=== PATIENT | female | born 1955 | race Caucasian/White ===

== ENCOUNTER 2018-07-28 13:33 | Day surgery (SDC) | payer OTHER ==
[2018-07-28] MEDS ORDERED: LIDOCAINE 2% (SDV) 5 ML INJ (15:37)
[2018-07-28] MEDS ORDERED: PROPOFOL 40 ML (15:37)
== END 2018-07-28 16:59 | disposition home or self-care (01) ==
LOC: GIL 13:33
DX: K92.1 Melena (principal); D12.5 Benign neoplasm of sigmoid colon
CPT/HCPCS: 45385; 88305

== ENCOUNTER 2018-10-19 19:10 | Inpatient (IN) | payer OTHER ==
[2018-10-19] MEDS: DEXTROSE 5%-0.45% NACL 1,000 ML IV (20:41)
[2018-10-19] MEDS: GABAPENTIN 300 MG CAP PO (21:49)
[2018-10-19] MEDS: morphine 2 MG INJ IV (22:00)
[2018-10-19] MEDS: PREGABALIN 100 MG CAP PO (22:37)
[2018-10-20] MEDS: NACL 0.9% 3 ML SYG IV (03:02)
[2018-10-20] MEDS: morphine 2 MG INJ IV ×4 (04:39→20:43)
[2018-10-20 05:38] LABS: ADD MAN DIFF? NO
[2018-10-20 05:45] LABS: BASOPHILS % 0.3 % (0.0-2.0); EOSINOPHILS # 0.2 10^3/ul (0.0-0.5); EOSINOPHILS % 3.8 % (0.0-7.0); HEMATOCRIT 32.6 % (37.0-47.0); HEMOGLOBIN 10.5 g/dl (12.0-16.0); LYMPHOCYTES # 1.2 10^3/ul (0.8-2.9); LYMPHOCYTES % 18.5 % (15.0-51.0); MEAN CORPUSCULAR HEMOGLOBIN 28.2 pg (29.0-33.0); MEAN CORPUSCULAR HGB CONC 32.2 g/dl (32.0-37.0); MEAN CORPUSCULAR VOLUME 87.4 fl (82.0-101.0); MEAN PLATELET VOLUME 10.5 fl (7.4-10.4); MONOCYTE # 0.9 10^3/ul (0.3-0.9); MONOCYTES % 13.9 % (0.0-11.0); NEUTROPHIL # 3.9 10^3/ul (1.6-7.5); NEUTROPHILS % 61.5 % (39.0-77.0); PLATELET COUNT 132 10^3/UL (140-415); RED BLOOD COUNT 3.73 10^6/ul (4.20-5.40); RED CELL DISTRIBUTION WIDTH 13.7 % (11.5-14.5)
[2018-10-20 05:45] LABS: WHITE BLOOD COUNT 6.4 10^3/ul (4.8-10.8)
[2018-10-20 06:11] LABS: LIPASE 53 U/L (23-300)
[2018-10-20] MEDS: DEXTROSE 5%-0.45% NACL 1,000 ML IV ×2 (06:22→17:53)
[2018-10-20 06:23] LABS: ALANINE AMINOTRANSFERASE 14 IU/L (13-69); ALBUMIN 3.1 g/dl (3.3-4.9); ALBUMIN/GLOBULIN RATIO 0.88; ALKALINE PHOSPHATASE 77 IU/L (42-121); ANION GAP 9 (5-13); ASPARTATE AMINO TRANSFERASE 22 IU/L (15-46); BILIRUBIN,INDIRECT 0.3 mg/dl (0-1.1); BILIRUBIN,TOTAL 0.3 mg/dl (0.2-1.3); BLOOD UREA NITROGEN 4 mg/dl (7-20); CALCIUM 8.8 mg/dl (8.4-10.2); CARBON DIOXIDE 29 mmol/L (21-31); CHLORIDE 102 mmol/L (97-110); CREATININE 0.58 mg/dl (0.44-1.00); Estimated GFR > 60 mL/min (>60); GLUCOSE 119 mg/dl (70-220); MAGNESIUM 1.8 mg/dl (1.7-2.5); PHOSPHORUS 3.9 mg/dl (2.5-4.9); POTASSIUM 3.9 mmol/L (3.5-5.1); SODIUM 140 mmol/L (135-144); TOTAL PROTEIN 6.6 g/dl (6.1-8.1)
[2018-10-20] MEDS: PREGABALIN 100 MG CAP PO ×2 (08:53→22:04)
[2018-10-20] MEDS: GABAPENTIN 300 MG CAP PO ×3 (08:53→20:43)
[2018-10-20] MEDS: HYDROmorphONE 0.5 MG/0.5 ML SYG IV ×2 (13:07→19:08)
[2018-10-21] MEDS: morphine 2 MG INJ IV ×2 (00:39→05:40)
[2018-10-21] MEDS: DEXTROSE 5%-0.45% NACL 1,000 ML IV ×2 (03:51→12:06)
[2018-10-21 05:21] LABS: ADD MAN DIFF? NO
[2018-10-21 05:27] LABS: BASOPHILS % 0.5 % (0.0-2.0); EOSINOPHILS # 0.2 10^3/ul (0.0-0.5); EOSINOPHILS % 3.2 % (0.0-7.0); HEMOGLOBIN 11.1 g/dl (12.0-16.0); LYMPHOCYTES # 1.5 10^3/ul (0.8-2.9); MEAN CORPUSCULAR HEMOGLOBIN 28.1 pg (29.0-33.0); MEAN CORPUSCULAR HGB CONC 32.6 g/dl (32.0-37.0); MEAN CORPUSCULAR VOLUME 86.1 fl (82.0-101.0); MEAN PLATELET VOLUME 10.6 fl (7.4-10.4); MONOCYTE # 0.7 10^3/ul (0.3-0.9); NEUTROPHIL # 4.2 10^3/ul (1.6-7.5); NEUTROPHILS % 62.5 % (39.0-77.0); PLATELET COUNT 201 10^3/UL (140-415); RED BLOOD COUNT 3.95 10^6/ul (4.20-5.40); RED CELL DISTRIBUTION WIDTH 13.5 % (11.5-14.5)
[2018-10-21 05:27] LABS: WHITE BLOOD COUNT 6.6 10^3/ul (4.8-10.8)
[2018-10-21 05:47] LABS: MAGNESIUM 1.9 mg/dl (1.7-2.5)
[2018-10-21 05:47] LABS: PHOSPHORUS 4.3 mg/dl (2.5-4.9)
[2018-10-21 05:48] LABS: ANION GAP 9 (5-13); BLOOD UREA NITROGEN 4 mg/dl (7-20); CALCIUM 8.9 mg/dl (8.4-10.2); CARBON DIOXIDE 29 mmol/L (21-31); CHLORIDE 103 mmol/L (97-110); CREATININE 0.53 mg/dl (0.44-1.00); Estimated GFR > 60 mL/min (>60); GLUCOSE 111 mg/dl (70-220); POTASSIUM 3.6 mmol/L (3.5-5.1); SODIUM 141 mmol/L (135-144)
[2018-10-21] MEDS ORDERED: CLINDAMYCIN 600 MG/50 ML D5W IVPB IVPB (07:00)
[2018-10-21] MEDS: GABAPENTIN 300 MG CAP PO ×3 (08:26→20:31)
[2018-10-21] MEDS: PREGABALIN 100 MG CAP PO ×2 (08:26→20:31)
[2018-10-21] MEDS: ONDANSETRON 4 MG INJ IV ×2 (10:10→19:16)
[2018-10-21] MEDS ORDERED: PROPOFOL 40 ML (12:41)
[2018-10-21] MEDS ORDERED: MIDAZOLAM 1 MG/ML 2 ML INJ (12:41)
[2018-10-21] MEDS ORDERED: LIDOCAINE 2% (SDV) 5 ML INJ (12:41)
[2018-10-21] MEDS ORDERED: ROCURONIUM 50 MG INJ (12:41)
[2018-10-21] MEDS ORDERED: FENTAnyl 50 MCG/ML VIAL ×2 (12:41→14:39)
[2018-10-21] MEDS ORDERED: FAMOTIDINE 20 MG INJ (12:42)
[2018-10-21] MEDS ORDERED: ONDANSETRON 4 MG INJ (12:42)
[2018-10-21] MEDS ORDERED: LABETALOL HCL 20MG INJ IV (13:30)
[2018-10-21] MEDS ORDERED: ALBUTEROL 0.083% (NEB) 2.5 MG/3 ML AMP HHN (13:30)
[2018-10-21] MEDS ORDERED: ONDANSETRON 4 MG INJ IV ×2 (13:30→17:00)
[2018-10-21] MEDS ORDERED: morphine (1 MG/ML) 10ML SYRINGE IV ×2 (13:30)
[2018-10-21] MEDS ORDERED: OXYCODONE/ACETAMINOPHEN (5/325) TAB PO ×2 (13:30)
[2018-10-21] MEDS ORDERED: HYDROmorphONE 1 MG/5 ML IV SYRINGE IV (13:30)
[2018-10-21] MEDS ORDERED: FENTAnyl 50 MCG/ML VIAL IV (13:30)
[2018-10-21] MEDS ORDERED: MEPERIDINE 25 MG INJ IV (13:30)
[2018-10-21] MEDS ORDERED: SUGAMMADEX SODIUM 200 MG/2 ML VIAL IV (15:26)
[2018-10-21] MEDS: BUPIVACAINE 0.25% (MPF) 30 ML INJ (16:04)
[2018-10-21] MEDS: LIDOCAINE 1%/EPI (1:100,000) (MDV) 20 ML (16:05)
[2018-10-21] MEDS: FENTAnyl 50 MCG/ML VIAL IV ×2 (16:40→16:47)
[2018-10-21] MEDS: DIPHENHYDRAMINE 50 MG INJ IV (16:52)
[2018-10-21] MEDS: HYDROmorphONE 1 MG/5 ML IV SYRINGE IV (16:53)
[2018-10-21] MEDS ORDERED: HYDROmorphONE 0.5 MG/0.5 ML SYG IV (17:00)
[2018-10-21] MEDS ORDERED: DIPHENHYDRAMINE 25 MG CAP PO (17:00)
[2018-10-21] MEDS ORDERED: KETOROLAC 30 MG INJ IV (17:00)
[2018-10-21] MEDS: D5W-0.45 NACL + KCL 20 MEQ 1,000 ML IV (17:55)
[2018-10-21] MEDS: FAMOTIDINE 20 MG INJ IV (20:33)
[2018-10-21] MEDS: HYDROmorphONE 0.5 MG/0.5 ML SYG IV (20:36)
[2018-10-22] MEDS: HYDROmorphONE 0.5 MG/0.5 ML SYG IV ×5 (02:02→22:24)
[2018-10-22] MEDS: ACETAMINOPHEN 325 MG TAB PO ×2 (02:54→11:14)
[2018-10-22] MEDS: D5W-0.45 NACL + KCL 20 MEQ 1,000 ML IV ×4 (03:45→22:46)
[2018-10-22 06:15] LABS: ADD MAN DIFF? NO
[2018-10-22] MEDS: CEFAZOLIN 1 GM/50 ML (PMX) 50 ML IVPB ×3 (06:18→21:45)
[2018-10-22] MEDS: ENOXAPARIN 40 MG/0.4 ML SYG SC (06:22)
[2018-10-22 06:31] LABS: WHITE BLOOD COUNT 11.7 10^3/ul (4.8-10.8)
[2018-10-22 06:31] LABS: BASOPHILS % 0.3 % (0.0-2.0); EOSINOPHILS % 0.1 % (0.0-7.0); HEMATOCRIT 32.2 % (37.0-47.0); HEMOGLOBIN 10.6 g/dl (12.0-16.0); LYMPHOCYTES # 1.6 10^3/ul (0.8-2.9); LYMPHOCYTES % 13.7 % (15.0-51.0); MEAN CORPUSCULAR HGB CONC 32.9 g/dl (32.0-37.0); MEAN CORPUSCULAR VOLUME 85.2 fl (82.0-101.0); MEAN PLATELET VOLUME 10.6 fl (7.4-10.4); MONOCYTE # 0.7 10^3/ul (0.3-0.9); MONOCYTES % 6.2 % (0.0-11.0); NEUTROPHIL # 9.2 10^3/ul (1.6-7.5); NEUTROPHILS % 79.1 % (39.0-77.0); PLATELET COUNT 238 10^3/UL (140-415); RED BLOOD COUNT 3.78 10^6/ul (4.20-5.40); RED CELL DISTRIBUTION WIDTH 13.4 % (11.5-14.5)
[2018-10-22 06:43] LABS: CHOL/HDL RATIO 5.4 RATIO; CHOLESTEROL 115 mg/dl (100-200); HDL CHOLESTEROL 21 mg/dl (35-98); LDL CHOLESTEROL,CALCULATED 76 mg/dl; MAGNESIUM 1.7 mg/dl (1.7-2.5); TRIGLYCERIDES 88 mg/dl (0-149)
[2018-10-22 06:43] LABS: PHOSPHORUS 3.4 mg/dl (2.5-4.9)
[2018-10-22 06:44] LABS: ANION GAP 6 (5-13); BLOOD UREA NITROGEN 2 mg/dl (7-20); CALCIUM 8.7 mg/dl (8.4-10.2); CARBON DIOXIDE 28 mmol/L (21-31); CHLORIDE 104 mmol/L (97-110); CREATININE 0.55 mg/dl (0.44-1.00); Estimated GFR > 60 mL/min (>60); GLUCOSE 148 mg/dl (70-220); POTASSIUM 3.7 mmol/L (3.5-5.1); SODIUM 138 mmol/L (135-144)
[2018-10-22 06:48] LABS: LACTIC ACID 0.7 mmol/L (0.5-2.0)
[2018-10-22] MEDS: GABAPENTIN 300 MG CAP PO ×3 (10:08→21:44)
[2018-10-22] MEDS: PREGABALIN 100 MG CAP PO ×2 (10:09→22:21)
[2018-10-22] MEDS: FAMOTIDINE 20 MG INJ IV ×2 (10:09→21:44)
[2018-10-22] MEDS: HYDROCODONE/APAP (5/325) TAB PO (15:43)
[2018-10-22 15:48] LABS: ADD UMIC NO; UR ASCORBIC ACID NEGATIVE (NEGATIVE); UR BILIRUBIN (Dip) NEGATIVE (NEGATIVE); UR BLOOD (Dip) NEGATIVE (NEGATIVE); UR CLARITY CLEAR (CLEAR); UR COLOR YELLOW (YELLOW); UR GLUCOSE (Dip) NEGATIVE (NEGATIVE); UR KETONES (Dip) NEGATIVE (NEGATIVE); UR LEUKOCYTE ESTERASE (Dip) NEGATIVE Leu/ul (NEGATIVE); UR NITRITE (Dip) NEGATIVE (NEGATIVE); UR SPECIFIC GRAVITY (Dip) 1.004 (1.003-1.030); UR TOTAL PROTEIN (Dip) NEGATIVE (NEGATIVE); UR UROBILINOGEN (Dip) 2+ mg/dL (NEGATIVE)
[2018-10-23] MEDS: HYDROmorphONE 0.5 MG/0.5 ML SYG IV (03:40)
[2018-10-23] MEDS: D5W-0.45 NACL + KCL 20 MEQ 1,000 ML IV (04:54)
[2018-10-23] MEDS: CEFAZOLIN 1 GM/50 ML (PMX) 50 ML IVPB ×2 (05:57→13:16)
[2018-10-23 06:17] LABS: ADD MAN DIFF? NO
[2018-10-23 06:25] LABS: BASOPHILS % 0.4 % (0.0-2.0); EOSINOPHILS # 0.1 10^3/ul (0.0-0.5); EOSINOPHILS % 1.3 % (0.0-7.0); HEMATOCRIT 30.2 % (37.0-47.0); HEMOGLOBIN 9.7 g/dl (12.0-16.0); LYMPHOCYTES # 1.4 10^3/ul (0.8-2.9); LYMPHOCYTES % 15.9 % (15.0-51.0); MEAN CORPUSCULAR HEMOGLOBIN 27.9 pg (29.0-33.0); MEAN CORPUSCULAR HGB CONC 32.1 g/dl (32.0-37.0); MEAN CORPUSCULAR VOLUME 86.8 fl (82.0-101.0); MEAN PLATELET VOLUME 10.3 fl (7.4-10.4); MONOCYTE # 0.7 10^3/ul (0.3-0.9); MONOCYTES % 7.6 % (0.0-11.0); NEUTROPHIL # 6.4 10^3/ul (1.6-7.5); NEUTROPHILS % 74.3 % (39.0-77.0); PLATELET COUNT 254 10^3/UL (140-415); RED BLOOD COUNT 3.48 10^6/ul (4.20-5.40); RED CELL DISTRIBUTION WIDTH 13.4 % (11.5-14.5)
[2018-10-23 06:25] LABS: WHITE BLOOD COUNT 8.5 10^3/ul (4.8-10.8)
[2018-10-23] MEDS: ONDANSETRON 4 MG INJ IV (06:28)
[2018-10-23] MEDS: ACETAMINOPHEN 325 MG TAB PO (06:28)
[2018-10-23] MEDS: ENOXAPARIN 40 MG/0.4 ML SYG SC (06:31)
[2018-10-23 06:46] LABS: PHOSPHORUS 3.5 mg/dl (2.5-4.9)
[2018-10-23 06:46] LABS: MAGNESIUM 1.8 mg/dl (1.7-2.5)
[2018-10-23 07:19] LABS: ANION GAP 8 (5-13); BLOOD UREA NITROGEN 3 mg/dl (7-20); CALCIUM 8.7 mg/dl (8.4-10.2); CARBON DIOXIDE 27 mmol/L (21-31); CHLORIDE 104 mmol/L (97-110); CREATININE 0.53 mg/dl (0.44-1.00); Estimated GFR > 60 mL/min (>60); GLUCOSE 123 mg/dl (70-220); POTASSIUM 3.8 mmol/L (3.5-5.1); SODIUM 139 mmol/L (135-144)
[2018-10-23] MEDS: FAMOTIDINE 20 MG INJ IV (08:54)
[2018-10-23] MEDS: PREGABALIN 100 MG CAP PO (08:54)
[2018-10-23] MEDS: GABAPENTIN 300 MG CAP PO ×2 (08:54→13:16)
[2018-10-23] MEDS: HYDROCODONE/APAP (5/325) TAB PO ×2 (09:02→16:26)
== END 2018-10-23 16:40 | disposition home or self-care (01) | DRG 419 ==
LOC: 2NE 19:10
PROC: 0FT44ZZ Resection of Gallbladder, Percutaneous Endoscopic Approach (ICD-10-PCS; principal; 2018-10-21 13:32)
DX: K80.12 Calculus of gallbladder with acute and chronic cholecystitis without obstruction (principal); E78.5 Hyperlipidemia, unspecified; M79.7 Fibromyalgia; F41.9 Anxiety disorder, unspecified; G62.9 Polyneuropathy, unspecified
CPT/HCPCS: 80048; 80053; 80061; 81003; 83605; 83690; 83735; 84100; 85025; 87040; 87081; 87086; 88304